=== PATIENT | male | born 1955 | race Caucasian/White ===

== ENCOUNTER → 2018-11-12 | Outpatient (CLI) | payer MEDICARE, OTHER ==
[~2018-11-12] VITALS: Ht 182.9 cm; Wt 106.1 kg
[~2018-11-12] MED LIST: ASPI-983 PO; CATHETER FLUSH 10 ML SYR IV PRN; CHOL20002 PO; COCO1000 PO; CRAN1TAB5 PO; FERR325T18 PO; METO-333 PO; MULT-301 PO; OMG1KC PO; PANT40SU PO; TICA90TA PO
[2018-11-12 09:11] VITALS: BP 110/80
--- NOTE | 2018-11-12 18:22 | STRESS TEST ---
DATE OF SERVICE: 11/12/2018 [facility] STRESS TEST REPORT INDICATION: Coronary artery disease. Baseline heart rate is 53. Baseline blood pressure 127/63. Baseline EKG is sinus rhythm with no ischemic changes. In summary, the patient was injected with 10.65 mCi of technetium-99 Myoview and the resting images were obtained. Then, the patient started exercising with a baseline heart rate, blood pressure and EKG mentioned above. The patient was able to exercise for a total of 4 minutes on standard [facility] protocol. With peak exercise level, EKG was showing minimal nondiagnostic changes. During recovery, heart rate and blood pressure returned to baseline. EKG returned to baseline. The resting and stress images were reviewed and compared in the short axis, horizontal long axis, and vertical long axis views. Review of the images showed diaphragmatic attenuation with reversible ischemia involving the whole inferior wall and inferolateral wall. SSS is 14. SDS 6. TID value 0.97. On the gated images, the left ventricle appeared to be normal size with normal contractility. Calculated ejection fraction 50%. CONCLUSION: 1. The patient was able to exercise for a total of 4 minutes on standard Adrian protocol, total of 5.6 mets. 2. Appropriate heart rate and blood pressure response to exercise returned to baseline during recovery. 3. Minimal nondiagnostic EKG changes with exercise returned to baseline during recovery. 4. Diaphragmatic attenuation with reversible ischemia involving the whole inferior wall and inferolateral wall. 5. Normal left ventricular size with normal contractility. Calculated ejection fraction 50%. Job ID: [id number] DocumentID: [id number] Dictated Date: 11/12/2018 14:16:31 Ship Washer Date: 11/12/2018 18:21:23 Dictated By: RUDDY HARO MD
== END ==
LOC: CARD 07:18
PROVIDERS: ATTEND Physician Assistant
DX: I25.10 Atherosclerotic heart disease of native coronary artery without angina pectoris (principal); E78.2 Mixed hyperlipidemia; I07.1 Rheumatic tricuspid insufficiency; Z87.891 Personal history of nicotine dependence
CPT/HCPCS: 78452; 93017; 93306

== ENCOUNTER 2018-11-19 11:11 | Day surgery (SDC) | payer MEDICARE, OTHER ==
[~2018-11-19] VITALS: Ht 182.9 cm; Wt 102.1 kg
[2018-11-19] VITALS (11 sets, daily range): BP systolic 99–129; BP diastolic 52–88
[~2018-11-19 11:11] MED LIST changes: -CATHETER FLUSH 10 ML SYR IV PRN
[2018-11-19] MEDS ORDERED: NS IV 1000 ML 1,000 ML ONE (11:15)
[2018-11-19] MEDS ORDERED: HEParin (CATH LAB) 1,000 ML IV ONE (11:15)
[2018-11-19] MEDS ORDERED: LIDOCAINE 1% INJ 20 ML 20 ML VIAL ONE (11:15)
[2018-11-19 11:50] LABS: HEMOGLOBIN 16.6 G/DL (13.3-17.7); MEAN PLATELET VOLUME 9.2 FL (7.4-10.4); RED BLOOD COUNT 5.3 10^6/uL (4.35-5.85); RED CELL DISTRIBUTION WIDTH 12.9 % (10.0-14.5); WHITE BLOOD COUNT 7.4 10^3/uL (4.3-11.0)
[2018-11-19 12:04] LABS: PROTHROMBIN TIME PATIENT 13.4 SEC (12.2-14.7)
[2018-11-19 12:10] LABS: ALANINE AMINOTRANSFERASE 28 U/L (0-55); ALBUMIN 4.7 GM/DL (3.2-4.5); ALKALINE PHOSPHATASE 59 U/L (40-136); BILIRUBIN,TOTAL 0.8 MG/DL (0.1-1.0); BUN/CREATININE RATIO 20; CARBON DIOXIDE 24 MMOL/L (21-32); CHLORIDE 107 MMOL/L (98-107); CHOLESTEROL 135 MG/DL (< 200); CREATININE SERUM 1.05 MG/DL (0.60-1.30); GFR ESTIMATED > 60; GLUCOSE 111 MG/DL (70-105); HDL CHOLESTEROL 39 MG/DL (40-60); SODIUM 142 MMOL/L (135-145); TOTAL PROTEIN 7.6 GM/DL (6.4-8.2); TRIGLYCERIDES 88 MG/DL (<150); VLDL CHOLESTEROL 18 MG/DL (5-40)
--- NOTE | 2018-11-19 12:13 | Diagnostic Imaging Report ---
INDICATION: Coronary artery disease preop, hypertension and CHF. COMPARISON: 09/12/2016 FINDINGS: Single view of the chest demonstrates a stable cardiac enlargement. The lungs are clear. There is no pneumothorax. Osseous structures are normal. IMPRESSION: Stable minimal cardiac enlargement without pulmonary edema or infiltrate. Dictated by: Dictated on workstation # [id number]
[2018-11-19] MEDS ORDERED: VITAMIN C PO (12:44)
[2018-11-19] MEDS ORDERED: ATOR10TA PO (12:44)
[2018-11-19] MEDS ORDERED: ASPI-983 PO (12:44)
[2018-11-19] MEDS ORDERED: ZINC PO (12:44)
[2018-11-19] MEDS ORDERED: METO-333 PO (12:44)
[2018-11-19] MEDS ORDERED: CHOL5000 PO (12:44)
[2018-11-19] MEDS ORDERED: VIT B COMPLEX PO (12:44)
[2018-11-19] MEDS ORDERED: CRAN1TAB5 PO (12:44)
[2018-11-19] MEDS ORDERED: MULT-35 PO (12:44)
[2018-11-19] MEDS ORDERED: MIDAZOLAM 5 MG/5 ML (VERSED) VIAL ONE (12:45)
[2018-11-19] MEDS ORDERED: fentaNYL INJECTION 100 MCG/2 ML AMP ONE (12:45)
[2018-11-19] MEDS ORDERED: NS IV 1000 ML 1,000 ML IV SCH ×2 (13:00→13:33)
--- NOTE | 2018-11-19 13:07 | Cardiac Procedure Note-CS/ASA ---
Pre-Procedure Note Pre-Op Procedure Note H&P Reviewed The H&P was reviewed, patient examined and no changes noted. Date H&P Reviewed: Nov 19, 2018 Time H&P Reviewed: 13:07 Conscious Sedation Pre-Proced Time 13:07 ASA Score 3 For ASA 3 and 4: Consider anesthesia and medical clearance. Also, for patients with a history of failed moderate sedation consider anesthesia. Airway Lungs Heart ASA score ASA 1: a normal healthy patient ASA 2: a patient with a mild systemic disease (mid diabetes, controlled hypertension, obesity x ASA 3: a patient with a severe systemic disease that limits activity (angina , COPD, prior Myocardial infarction) ASA 4: a patient with an incapacitating disease that is a constant threat to life (CHF, renal failure) ASA 5: a moribund patient not expected to survive 24 hrs. (ruptured aneurysm) ASA 6: a declared brain patient whose organs are being harvested. For emergent operations, add the letter E after the classification Mallampati Classification Grade 3 Sedation Plan Analgesia, Amnesia, Plan communicated to team members, Discussed options with patient/fam, Discussed risks with patient/fam The patient is an appropriate candidate to undergo the planned procedure, sedation, and anesthesia. The patient immediately re-assessed prior to indication. RUDDY HARO MD Nov 19, 2018 13:07
--- NOTE | 2018-11-19 13:41 | Cardiac Cath Report ---
Cardiac Cath Report Physician (s)/Armor Reconnaissance Specialist (s) Physician RUDDY HARO MD Pre-Procedure Diagnosis Pre-Procedure Diagnosis: Coronary artery disease Post-Procedure Note Procedure Start Date: Nov 19, 2018 Name of Procedure: [facility] Findings/Procedure Note PROCEDURE NOTE: After explaining the procedure to the patient, all pros and cons were explained , all questions were answered. The patient signed the consent and then he was placed on the cardiac catheterization laboratory. Groin was prepped SL fashion local anesthesia was used. Sheath placed in the right femoral artery. Sonia right and left catheter were used to access the coronary system. Pigtail was used to access the left ventricular cavity. Left ventriculogram was not done, pressure wad measured At the end of the procedure the sheath was removed. Closure device was used FINDINGS: Hemodynamics LV 118/10 end diastolic pressure is 10 Aorta 110/59 mean 35 ANATOMY: Left Main is free of obstructive disease Left Anterior Descending has mild to moderate disease at the midportion, wraparound artery, nonobstructive disease Left Circumflex has a patent stent proximally, the left PDA has moderate ostial stenosis nonobstructive disease Right Coronory Artery is very small artery, nondominant artery LV Gram was not done, pressure was measured CONCLUSION: 1. Patent stent in the proximal circumflex artery, mild ostial left PDA stenosis, nonobstructive disease 2. Mild to moderate disease in the mid LAD nonobstructive disease 3. Very small right coronary artery, nondominant. With mild to moderate disease 4. Normal left ventricular end-diastolic pressure DISCUSSION AND RECOMMENDATION: medical therapy is recommended no intervention is needed, abnormal stress test is probably due to extracardiac attenuation or small vessel disease Anesthesia Type: Conscious Sedation Estimated blood loss (mL): 15 ml Contrast Amount: 39 ml Total Radiation Dose: 359 mGy Post-Procedure Diagnosis Post-operative diagnosis: Chest pain Coronary artery disease Hypertension Hyperlipidemia RUDDY HARO MD Nov 19, 2018 13:41
[2018-11-19] MEDS ORDERED: PATIENT MAY USE OWN MEDS, ALL PO SCH (13:45)
== END 2018-11-19 17:55 | disposition home or self-care (01) ==
LOC: CATH 11:11 → SDC 13:54 → CATH 17:55
PROVIDERS: ATTEND Internal Medicine Cardiovascular Disease
DX: R07.9 Chest pain, unspecified (principal); I25.10 Atherosclerotic heart disease of native coronary artery without angina pectoris; I11.0 Hypertensive heart disease with heart failure; I50.9 Heart failure, unspecified; E78.2 Mixed hyperlipidemia; I25.2 Old myocardial infarction; Z95.5 Presence of coronary angioplasty implant and graft; I65.23 Occlusion and stenosis of bilateral carotid arteries; I49.5 Sick sinus syndrome; Z79.899 Other long term (current) drug therapy
CPT/HCPCS: 36415; 71045; 80053; 80061; 85027; 85610; 85730; 87081; 93458